=== PATIENT | female | born 1960 | race Caucasian/White ===

== ENCOUNTER 2016-08-06 20:45 | Inpatient (IN) | payer MEDICAID ==
[~2016-08-06] VITALS: Ht 165.1 cm; Wt 84.3 kg
[~2016-08-06 20:45] MED LIST: ATIVAN-DPS0.5 MG PO; CARAFATE DPS1 GM PO; IMITREX25 MG PO; KLONOPIN DPS0.5 MG PO; LAMICTAL DPS100 MG PO; LASIX DPS20 MG PO; LEXAPRO DPS20 MG PO; MICRO-K DPS10 MEQ PO; MIRALAX PACKET17 GM PO; OXY IR DPS5 MG PO; PEPCID40 MG PO; PROTONIX40 MG PO; REVIA50 MG PO; RISPERDAL3 MG PO; SEROQUEL XR300 MG PO; WELLBUTRIN SR150 M1 PO
--- NOTE | 2016-08-07 02:54 | ER ---
ADMIT: 08/06/2016 RM/LOC: 410 [facility] MR#: [id number] [address] [facility] [address] [place], [place] [address] JOSE LUNA [address] [place] [address] Emergency Room Report SEX: F AGE: 56 : 1960 DATE: 08/06/2016 CHIEF COMPLAINT: Abdominal pain. HISTORY OF PRESENT ILLNESS: The patient is a 56-year-old female, newly diagnosed metastatic pancreatic cancer proven by biopsy, hospitalized July 31 through . Since discharge, had persistent poor intake, nausea, and vomiting. Last bowel movement a week ago. Denies any fevers, chills, urinary symptoms, or significant cough. PAST MEDICAL HISTORY: ILLNESSES: Hypertension, pancreatic cancer metastatic, migraines, adjustment disorder, GERD, gastritis proven on recent EGD with negative H. pylori, anemia, chronic pain, bipolar disease, nicotine dependence, and DJD. OPERATIONS: Appendectomy, cholecystectomy, hysterectomy, x5, Parminder- en-Y, and partial gastrectomies for ulcer disease. ALLERGIES: STADOL. MEDICATIONS: Please see nurse's MAR. SOCIAL HISTORY: . Smokes up to 2 packs per day. No illicit drugs or alcohol. FAMILY HISTORY: Negative per chart review. REVIEW OF SYSTEMS: A 12-point review of systems negative for all other systems, illnesses, or operations except as outlined above. PHYSICAL EXAMINATION: VITAL SIGNS: Temp 96.5, pulse 96, respirations 16, BP 148/91, SaO2 of 85% on room air. GENERAL: Anxious, nontoxic, nondiaphoretic without jaundice or icterus. HEENT: Normocephalic. No evidence of epistaxis, rhinorrhea, or otorrhea. NECK: Supple without lymphadenopathy or thyromegaly. CHEST: Clear. Breath sounds equal. HEART: Regular rate and rhythm without murmur, gallop, or edema. ABDOMEN: Distended. Diffusely tender. Bowel sounds hyperactive. EXTREMITIES: No evidence of Homans sign, synovitis, or dermatitis. NEURO: EOMI. PERRLA. No evidence of drift, dysarthria, or ataxia. Gait normal. MEDICAL DECISION MAKING: CT abdomen and pelvis showed nonspecific gas pattern without free air or bowel obstruction, metastatic disease and pancreatic mass noted, unchanged from recent CT. Lung windows unremarkable. Hemoglobin 11.6, stable. CRP 7.06. CMP; glucose 122, troponin less than 0.015, lipase 424, ADMIT: 08/06/2016 RM/LOC: 410 [facility] MR#: [id number] [address] [address] JOSE LUNA [address] [facility], [place] [address] Emergency Room Report SEX: F AGE: 56 : 1960 and lactic 1.2. The patient received IV fluid bolus, Zofran, Dilaudid, and Protonix with improvement. Discussed case with Dr. Seaman and Meggan. Dr. Broderick gave orders to nursing staff. DIAGNOSIS: Metastatic pancreatic carcinoma associated with persistent nausea, vomiting, and abdominal pain. RECOMMENDATION: Admit inpatient Med/Surg for Dr. Rosen. ADMISSION/DISCHARGE CONDITION: Stable. Eyad Jack MD/ modl JOB #: [id number] CC: Franco Rosen MD, Attending Physician Franco Rosen MD, Family Physician Franco Rosen MD
--- NOTE | 2016-08-08 14:25 | HP ---
ADMIT: 08/06/2016 RM/LOC: 410 [facility] MR#: [id number] 26[address] [facility] [address] [place], [place] [address] JOSE LUNA [address] [place] [address] History and Physical SEX: F AGE: 56 : 1960 DATE OF SERVICE: CHIEF COMPLAINT: Nausea, vomiting, and abdominal pain. HISTORY OF PRESENT ILLNESS: The patient is a 56-year-old female, who presented to the ER this evening for nausea, vomiting, and abdominal pain. Of note, she was admitted early this week for nausea, vomiting, abdominal pain, and difficulty swallowing throughout this admission. CT abdomen showed a mass on her pancreas. EGD was done, and liver biopsy was done as well. She received a diagnosis of pancreatic cancer. EGD showed some mild esophagitis and gastritis, and a small type 1 hiatal hernia, but no masses or ulcers. Liver pathology showed invasive adenocarcinoma of signet ring cells consistent with pancreatobiliary or upper GI primary cancer. The patient was discharged home, she was not able to keep any food or liquids down. She continued to have nausea and vomiting, so she decided, she came in. She does mention that the abdominal pain has continued, but it radiated to the left back currently. No fever. No shortness of breath. No chest pain. No diarrhea or constipation. No upper respiratory symptoms. No numbness, tingling, or weakness as well. PAST MEDICAL HISTORY: Significant for bipolar, general anxiety disorder, depression, GERD, chronic pain syndrome, obesity, nicotine dependence, pancreatic cancer, migraines, and osteoarthritis. PAST SURGICAL HISTORY: Includes bariatric surgery. SOCIAL HISTORY: She is a smoker. She smokes about 1 pack per day. She has minimal alcohol use. She is a . REVIEW OF SYSTEMS: Ten-point review of systems obtained and per HPI and was otherwise negative. PHYSICAL EXAMINATION: VITAL SIGNS: Temperature is 97.1, pulse of 81, respirations 16, blood pressure 149/89, and 96% on room air. GENERAL: She does appear in some acute pain, but otherwise stable. She is pleasant, alert, and oriented x3. HEENT: Normocephalic and atraumatic. Moist mucous membranes. Extraocular muscles are intact. HEART: Regular rate and rhythm. No murmur. LUNGS: Clear to auscultation bilaterally. Did not appreciate any wheezing or rhonchi. ABDOMEN: Soft. Positive tenderness in the upper left quadrant. Positive bowel sounds. EXTREMITIES: No signs of edema. NEUROLOGIC: Cranial nerves II through XII are grossly intact. LABORATORY DATA: Blood work; white cell count was 8.7, hemoglobin was 11.6, and platelets were 310. Alkaline phosphatase is elevated at 244, AST was 31, ALT was 28. Sodium is 142, potassium 3.7, chloride 107, CO2 is 25, BUN of 5, ADMIT: 08/06/2016 RM/LOC: 410 [facility] MR#: [id number] [address] [place] [id number] JOSE LUNA [address] [place] [address] History and Physical SEX: F AGE: 56 : 1960 creatinine is 0.8, blood glucose is 122, and calcium is 9.3. Lipase is elevated at 424. Troponin was normal. CRP was 7.06. Lactic acid is 1.2. UA was normal. ASSESSMENT AND PLAN: 1. Pancreatic cancer. 2. Nausea and vomiting. 3. Bipolar. 4. Gastroesophageal reflux disease. 5. Nicotine dependence. 6. Anxiety and depression. We will continue the patient's home medications. We will also get the patient started on IV fluids for rehydration. We will also control her nausea and vomiting. We will consult Heme-Onc in the morning for further management of the patient's cancer. Beatrice Broderick MD Resident / Ernesto Seaman MD / marie JOB #: [id number] CC: Franco Rosen, Attending Physician Franco Rosen, Family Physician
[2016-08-11] MEDS ORDERED: IMITREX25 MG PO (17:33)
[2016-08-11] MEDS ORDERED: LASIX DPS20 MG PO (17:33)
[2016-08-11] MEDS ORDERED: MICRO-K DPS10 MEQ PO (17:34)
[2016-08-11] MEDS ORDERED: PEPCID40 MG PO (17:34)
[2016-08-11] MEDS ORDERED: WELLBUTRIN XL300 MG PO (17:34)
[2016-08-11] MEDS ORDERED: LAMICTAL DPS100 MG PO (17:35)
[2016-08-11] MEDS ORDERED: RISPERDAL3 MG PO (17:35)
[2016-08-11] MEDS ORDERED: LEXAPRO DPS20 MG PO (17:35)
[2016-08-11] MEDS ORDERED: SEROQUEL XR300 MG PO (17:35)
[2016-08-11] MEDS ORDERED: CARAFATE DPS1 GM PO (17:36)
[2016-08-11] MEDS ORDERED: KLONOPIN DPS0.5 MG PO (17:36)
[2016-08-11] MEDS ORDERED: PROTONIX40 MG PO (17:36)
[2016-08-11] MEDS ORDERED: MIRALAX PACKET17 GM PO (17:36)
[2016-08-11] MEDS ORDERED: OXY IR DPS5 MG PO (17:37)
[2016-08-11] MEDS ORDERED: ATIVAN-DPS0.5 MG PO (17:38)
[2016-08-11] MEDS ORDERED: MYLICON DPS80 MG PO (17:39)
[2016-08-11] MEDS ORDERED: REGLAN-DPS10 MG PO (17:40)
[2016-08-11] MEDS ORDERED: NORVASC5 MG PO (17:40)
[2016-08-11] MEDS ORDERED: [UNRECOGNIZED DRUG - OTHER] PO (17:41)
[2016-08-11] MEDS ORDERED: KEFLEX-DPS500 MG PO (17:41)
--- NOTE | 2016-08-12 14:01 | CO ---
ADMIT: 08/06/2016 RM/LOC: 410 [facility] MR#: [id number] 26[address] [facility] [address] [place], [place] [address] COURTNEY LUNA [address] [facility] [place] [address] Consultation SEX: F AGE: 56 : 1960 DATE OF CONSULTATION: 08/09/2016 ATTENDING PHYSICIAN: Franco Rosen CONSULTING PHYSICIAN: Deb Johnson APRN TIME IN: 1410 hours. TIME OUT: 1500 hours. REASON FOR CONSULTATION: Supportive Care consultation was requested by Dr. Rosen for discussion of goals for care. HISTORY OF PRESENT ILLNESS: Courtney is a delightful 56-year-old female, who states that she has been having ongoing nausea and vomiting for a few months. She was hospitalized here July 31 through August 03 with dysphagia, gastritis, and nausea and vomiting. Evaluation at that time unfortunately found a pancreatic mass and she was also found to have liver lesions. Pathology did reveal adenocarcinoma and she is currently preparing to start chemotherapy for metastatic pancreatic cancer. She unfortunately was readmitted on the due to the inability to keep any food down. She was also having significant abdominal pain. Oncology did see her here as an inpatient. Today, she received her port for future chemotherapy. Additionally, there was some concern that her pain was due to celiac plexus involvement and she was going to receive a block today, however, then declined it once her oral pain medications began providing adequate relief of her pain. She will likely discharge soon to home. Due to her complexities, Supportive Care consultation was requested to discuss goals for care. In terms of advanced directives, the patient is a full code. She states that she has completed healthcare [id number] paperwork as well as a living will and is in the process of getting this notarized after she gets out of the hospital. She has designated her daughter, Roula Luna, whose phone #[phone] as her healthcare [id number]. It is of note that the Roula is a nurse here at our facility in the emergency room. The patient states that she will also complete her living will. Symptomatically, the patient reports that overall she is fairly comfortable. Her main issue currently is a little bit of nausea and vomiting and difficulty with swallowing food as she states that it feels like it gets stuck in her esophagus. She is doing better with soft foods and liquids. PAST MEDICAL HISTORY: 1. Metastatic pancreatic cancer. 2. Bipolar disorder. 3. Generalized anxiety disorder. 4. Depression. 5. GERD. 6. Chronic pain syndrome. ADMIT: 08/06/2016 RM/LOC: 410 [facility] MR#: [id number] [address] [place] [phone] COURTNEY LUNA [address] [place] [address] Consultation SEX: F AGE: 56 : 1960 7. Obesity. 8. Nicotine dependence. 9. Migraines. 10.Osteoarthritis. PAST SURGICAL HISTORY: Bariatric surgery. ALLERGIES: THE PATIENT HAS NO KNOWN MEDICATION ALLERGIES. CURRENT MEDICATIONS: Please see the patient's MAR for specific routes and dosages. Her current medications are as follows: 1. Phenergan. 2. Mylicon. 3. Reglan. 4. MiraLax. 5. Norvasc. 6. Seroquel. 7. Risperdal. 8. Pepcid. 9. Protonix. 10.Dulcolax. 11.Benadryl. 12.Narcan. 13.Dilaudid. 14.Wellbutrin. 15.Klonopin. 16.Lexapro. 17.Lamictal. 18.Potassium chloride. 19.Lasix. 20.Ativan. 21.Oxycodone IR. 22.Imitrex. 23.Ativan. 24.Zofran. 25.Habitrol. 26.Maalox. 27.Tylenol. 28.Colace. 29.Carafate. SOCIAL HISTORY: The patient is single. She is . She is a smoker. She minimally uses alcohol. She is Sikhism. FAMILY HISTORY: Reviewed and noncontributory. FUNCTIONAL REVIEW: Prior to her stay, she was at home, independent. She had recently moved into independent living [facility] out at [facility]. She ADMIT: 08/06/2016 RM/LOC: 410 [facility] MR#: [id number] [address] [address] COURTNEY LUNA [facility] [place] [address] Consultation SEX: F AGE: 56 : 1960 could perform ADLs independently. Her palliative performance scale prior to admission was around 70% to 80%. Currently, she can ambulate. She is needing occasional assistance. Her intake is reduced. Her current palliative performance scale is 60%. I did review weights from earlier in the month and she does not appear to have lost weight. REVIEW OF SYSTEMS: A 10-point review of systems was completed and other than those pertinent positives and negatives mentioned in the HPI, it is negative. PHYSICAL EXAMINATION: GENERAL: The patient is examined in the chair. She is in no acute distress. VITAL SIGNS: Temperature 98.1, pulse 77, respirations 18, blood pressure 142/83, oxygen 93% on room air. HEENT: Head is normocephalic. Pupils are equal, round, and reactive at 3 mm. Oral mucosa pink and moist with fair dentition. NECK: Supple. RESPIRATORY: Respirations are equal and nonlabored at rest. LUNGS: Diminished in the bases bilaterally. CARDIOVASCULAR: Rate and rhythm regular without murmurs, rubs, or gallops. Has 1+ bilateral lower extremity edema noted. GASTROINTESTINAL: Soft, nontender. Bowel sounds are positive. She states that she had a bowel movement yesterday. MUSCULOSKELETAL: Generalized weakness. No obvious joint deformities. INTEGUMENTARY: Skin turgor is fair. No rashes or wounds noted. NEUROLOGIC: Alert and oriented x3. She will follow commands. PSYCHIATRIC: Calm and cooperative. No agitation or delirium noted. DIAGNOSTIC DATA: Sodium 144, potassium 3.5, BUN 5, creatinine 0.8, total protein 7.1, albumin 3.0. WBCs 4.9, hemoglobin 9.9, hematocrit 33.0, platelets are 275. IMPRESSION: 1. Physical debility. 2. Fatigue. 3. Dysphagia. 4. Nausea and vomiting. 5. Moderate protein-calorie malnutrition. 6. Abdominal pain. 7. Bipolar disorder. 8. Generalized anxiety disorder. 9. Obesity. 10.Palliative care. 11.The patient is a full code. PLAN OF TREATMENT: 1. I was able to meet with the patient at the bedside along with her mother, father, step mother, and sister. We reviewed the patient's overall status and goals for the time ahead. The patient is realistic and tells ADMIT: 08/06/2016 RM/LOC: 410 [facility] MR#: [id number] [address] [place] [id number] COURTNEY LUNA [address] [place] [address] Consultation SEX: F AGE: 56 : 1960 me that she has "six months to a year to live." She is willing to do chemotherapy in the time ahead and is hopeful that this will provide her some time and also increase quality of life. She recognizes that she will have ongoing decline in the time ahead and eventually her goals will change. We did review the hospice philosophy and benefit for future reference. It is of note that the patient's sister is a hospice nurse and is well-versed with the hospice philosophy. Much support is given to the patient. Her cable mechanic is following her for support as well. 2. We did review code status and at this time, she desires a full code status. She is clear that she would not want to be left on the machine in a vegetative state. We will continue discussions regarding code status pending her status in the time ahead. 3. In terms of advanced directives, she has completed the healthcare power- of-district attorney and living will paperwork, and just needs to get this notarized. I did instruct her that if she brings it to the hospital, we could certainly notarize that for her here or I encouraged her to get to a [employer] or other [employer] as soon as possible after discharge to get this completed. 4. The patient and family do have questions about future care giving options as she declines in the time ahead. I will have Social Work talk with them about caregiving help in the home. 5. We will continue to follow along in the care of this patient. We would like to thank Dr. Rosen for the invitation to participate in this patient's care. Total consultation time was 50 minutes from 1410 hours to 1500 hours with 30 minutes from 1415 hours to 1445 hours spent [id number] with the patient and family discussing goals for care and providing counseling and support. We will continue to follow along in the care of this shabana patient. Deb Johnson APRN/ marie JOB #: [id number] CC: Franco Rosen, Attending Physician Franco Rosen, Family Physician
--- NOTE | 2016-08-22 22:18 | DS ---
ADMIT: 08/06/2016 RM/LOC: 410 [facility] MR#: [id number] 2620 [facility] [address] [place], [place] [address] JOSE LUNA [address] [place] [address] General Discharge Summary SEX: F AGE: 56 : 1960 ADMISSION DATE: 08/06/2016 DISCHARGE DATE: 08/10/2016 CONSULTS: Heme-Onc and Supportive Care. PROCEDURE DURING THIS HOSPITALIZATION: Port placement. FINAL DIAGNOSES: 1. Metastatic pancreatic cancer. 2. Nausea and vomiting secondary to pancreatic cancer. 3. Abdominal pain, suspected to be secondary to a celiac plexus involvement of the cancer. Other diagnoses include: 1. Bipolar disorder. 2. Gastroesophageal reflux disease. 3. Anxiety. 4. Depression. 5. Nicotine dependence. 6. Obesity. COURSE OF HOSPITALIZATION: The patient was admitted to the hospital for abdominal pain, nausea, and vomiting. The patient had just been admitted about a week prior where she was diagnosed with a pancreatic tumor with mets to the liver. The patient continued to have this nausea and vomiting, could not keep anything down and felt weak. The patient was admitted. We treated her nausea and vomiting supportively with IV fluids and antiemetics. The patient also was given oral pain medications. There was, maybe, some suspicion that the cancer was involved to the celiac plexus. She was offered to have a celiac plexus block, but she felt like the oral pain medications were working at this time, so she did not want to pursue that. The patient did have a port placed by General Surgery. The patient was seen by the Heme-Onc team at the time of admission as well and it was decided that the patient would start chemotherapy as an outpatient on 08/11/2016. Supportive Care was also involved to help with discussion of overall cares, hospice, to educate the family on hospice if at later date and they chose to go that route. The patient realizes that her pancreatic cancer has a poor prognosis, but she was willing to do chemotherapy at this time to hopefully help with her quality of life. DISCHARGE INSTRUCTIONS: The patient had a followup appointment with Dr. Rosen on 08/19/2016. Also, had an appointment to see the Oncology on 08/12/2016 to start the chemotherapy. MEDICATIONS: Medications that needed to be stopped after discharge: Naltrexone. Medications that she was sent out on include: 1. Furosemide 20 mg daily. 2. Imitrex 25 mg as needed. 3. Wellbutrin 150 mg daily. ADMIT: 08/06/2016 RM/LOC: 410 [facility] MR#: [id number] [address] [address] JOSE LUNA [facility] [place] [address] General Discharge Summary SEX: F AGE: 56 : 1960 4. Pepcid 40 mg at bedtime. 5. Potassium chloride at 10 mEq daily. 6. Lamictal 200 mg daily. 7. Risperdal 6 mg at night. 8. Seroquel 600 mg at bedtime. 9. Lexapro 20 mg daily. 10.Klonopin 0.5 mg b.i.d. 11.Carafate b.i.d. 12.Protonix 40 mg at bedtime. 13.MiraLax b.i.d. 14.Oxycodone q.8 hours. 15.Ativan 0.5 mg q.6 hours as needed. 16.Mylicon drop as needed every 6 hours. 17.Norvasc 5 mg daily. 18.Reglan 10 mg daily. CODE STATUS DURING THIS HOSPITALIZATION: Full. Beatrice Broderick MD Resident / Ernesto Seaman MD / modl JOB #: [id number] CC: Franco Rosen MD, Attending Physician Franco Rosen MD, Family Physician
--- NOTE | 2016-08-27 00:06 | CO ---
ADMIT: 08/06/2016 RM/LOC: [facility] MR#: [id number] [address] [facility] [address] [place], [place] [address] JOSE LUNA [address] [place] [address] Consultation SEX: F AGE: 56 : 1960 DATE OF CONSULTATION: 08/07/2016 ATTENDING PHYSICIAN: Franco Rosen CONSULTING PHYSICIAN: Chris Echeverria MD HISTORY OF PRESENT ILLNESS: This is a pleasant, 56-year-old, lady, who has a history of schizophrenia, bipolar disorder, prior alcohol history, has been on several pain medications, prior history of pain medication related dependency, comes down with abdominal pain, nausea, and vomiting. CAT scan shows a pancreatic mass along with metastatic liver lesion. She has undergone a biopsy of the liver lesion revealing a pancreatic cancer, and the EGD has shown some esophagitis and gastritis. The patient was discharged and readmitted over the weekend because of the recurring abdominal pain, inability to eat, and keep the fluids down, and complaining of epigastric pain, and difficulty moving her bowels too. She is on Dilaudid pump, and the pathology shows adenocarcinoma of the pancreas. PAST MEDICAL HISTORY SURGERY: Positive for bipolar general anxiety disorder, depression, gastroesophageal reflux, chronic pain syndrome, obesity, nicotine dependence, pancreatic cancer, migraine, and osteoarthritis. PAST SURGICAL HISTORY: Includes a bariatric surgery. SOCIAL HISTORY: She does not work. She is a smoker and has done alcohol in the past. She is . She has children and a very supportive family. REVIEW OF SYSTEMS: She seems to be groggy due to the Dilaudid pump. As far as obtained from the patient, there is an epigastric pain controlled by the Dilaudid [employer] pump. There is nausea and vomiting history. There are no black stools. No urinary complaints. No chest pain. No weight loss. Rest of the systems are negative. PHYSICAL EXAMINATION: VITAL SIGNS: Temperature 97, blood pressure 140/90, pulse rate 81, respirations 20. HEAD, EARS, EYES, NOSE, THROAT EXAM: Normocephalic and atraumatic. Extraocular muscles intact. NECK: Supple. No JVD. No lymph nodes palpable. CHEST: Chest sounds clear to auscultation and percussion. HEART: Normal S1 and S2. No S3 or S4. No murmurs. ABDOMEN: Soft, nontender. No organomegaly. Bowel sounds positive. EXTREMITIES: No cyanosis, clubbing, or edema. LABORATORY DATA: WBC count 4.9, hemoglobin 11.6, hematocrit 36, platelets 310. Sodium 144, potassium 3.5, chloride 110, BUN 5, creatinine 0.8, total protein 7.1, albumin 3.0, alk phosphatase 244, AST 31, ALT 28, lipase 424. ADMIT: 08/06/2016 RM/LOC: 410 [facility] MR#: [id number] [address] [place] [phone] JOSE LUNA [address] [place] [address] Consultation SEX: F AGE: 56 : 1960 ASSESSMENT AND PLAN: This is a pleasant, 56-year-old, lady with the metastatic pancreatic cancer. She has incurable disease, but we can evaluate her for clinical trials versus standard care with the FOLFIRINOX chemo. Her abdominal pain makes me wonder if there is celiac plexus involvement with the tumor causing of this. I will ask our Interventional Radiology to evaluate her for a celiac plexus block for pain control. I explained to her that if we could minimize her narcotics, she would be having a better quality life and more cooperation. I will then plan to see her as an outpatient to start her chemotherapy. I went over about the prognosis, expectations, side effects, treatment options. All the questions were answered. This encounter took 60 minutes, 35 minutes was [id number]. Chris Echeverria MD/ marie JOB #: [id number] CC: Franco Rosen, Attending Physician Franco Rosen, Family Physician
--- NOTE | 2016-09-08 11:41 | OR ---
ADMIT: 08/06/2016 RM/LOC: 410 [facility] MR#: [id number] [address] [facility] [address] [place], [place] [address] JOSE LUNA [address] [place] [address] Operative/Delivery Room Report SEX: F AGE: 56 : 1960 SURGERY DATE: 08/09/2016 SURGEON: David Keller MD PRE-PROCEDURE DIAGNOSIS: Metastatic pancreatic cancer. POSTPROCEDURE DIAGNOSIS: Metastatic pancreatic cancer. PROCEDURE: Right subclavian vein PowerPort placement. INDICATION: The patient is a 56-year-old with metastatic pancreatic cancer, who presents for PowerPort placement. DESCRIPTION OF PROCEDURE: The patient was taken to the operating room. IV sedation was given. The chest and neck were prepped and draped in normal sterile fashion. The case was begun by injecting lidocaine infraclavicularly on the left side. We made about a 6-7 attempts to give in the left subclavian vein and there was not any flash of blood at all. We tried medially and laterally, pulled the arm down with no flash of blood return at all. So, we then went to the right side. I injected 1% lidocaine subclavicularly and on the 1st venipuncture attempt, had a nice backflow of venous output. We threaded the vein with a wire under fluoroscopic guidance with the wire in the right ventricle. An Tyveng-N-Jbkc pocket was made with a #15 blade, cautery, and blunt finger dissection. A dilator sheath was placed over our wire. Our catheter was cut to 15 cm and assembled. Our catheter was then threaded through our sheath under fluoroscopic guidance with the tip in the right atrium. The catheter was aspirated and flushed without difficulty, then was flushed with heparinized saline. The port was sutured to the Alverto's fascia using 3-0 Prolene suture. The wound was closed with interrupted 3-0 Vicryl subdermal suture and a running 4-0 Vicryl subcuticular skin stitch. Wound was cleaned, dried, and dressed. The patient tolerated the procedure without difficulty, transferred to the recovery room in good condition. David Keller MD/ marie JOB #: [id number] CC: Franco Rosen, Attending Physician Franco Rosen, Family Physician
[2016-09-13] MEDS ORDERED: RISPERDAL2 MG PO (18:47)
[2016-09-13] MEDS ORDERED: PEPCID40 MG PO (18:47)
[2016-09-13] MEDS ORDERED: RISPERDAL1 MG PO (18:47)
[2016-09-13] MEDS ORDERED: ZOFRAN4 MG PO (18:48)
[2016-09-13] MEDS ORDERED: PROTONIX40 MG PO (18:48)
[2016-09-13] MEDS ORDERED: CORTISPORIN CR7.5 GM (18:49)
[2016-09-13] MEDS ORDERED: MIRALAX PACKET17 GM PO (18:49)
[2016-09-13] MEDS ORDERED: MICRO-K DPS10 MEQ PO (18:50)
[2016-09-13] MEDS ORDERED: COMPAZINE10 MG PO (18:50)
[2016-09-13] MEDS ORDERED: KLONOPIN DPS0.5 MG PO (18:51)
[2016-09-13] MEDS ORDERED: LEXAPRO DPS20 MG PO (18:51)
[2016-09-13] MEDS ORDERED: IMITREX25 MG PO (18:51)
[2016-09-13] MEDS ORDERED: LAMICTAL150 MG PO (18:52)
[2016-09-13] MEDS ORDERED: BUPROPION XL150 MG PO (18:52)
[2016-09-13] MEDS ORDERED: WELLBUTRIN XL300 MG PO (18:52)
[2016-09-13] MEDS ORDERED: ATIVAN-DPS0.5 MG PO (18:52)
[2016-09-13] MEDS ORDERED: LASIX DPS20 MG PO (18:53)
[2016-09-13] MEDS ORDERED: FLEXERIL-DPS10 MG PO (18:53)
[2016-09-13] MEDS ORDERED: NORVASC5 MG PO (18:53)
[2016-09-13] MEDS ORDERED: MS CONTIN DPS15 MG PO (18:53)
[2016-09-13] MEDS ORDERED: SEROQUEL XR300 MG PO (18:54)
[2016-09-13] MEDS ORDERED: THERA1 EACH PO (18:54)
[2016-09-13] MEDS ORDERED: TYLENOL EXTRA500 M1 PO (18:54)
[2016-09-13] MEDS ORDERED: REGLAN-DPS10 MG PO (18:54)
[2016-09-13] MEDS ORDERED: FLAGYL-DPS500 MG PO (18:55)
[2016-09-13] MEDS ORDERED: NICOTINE PATCH1 EAC1 TD (18:55)
== END 2016-08-10 12:47 | disposition home or self-care (01) | DRG 392 ==
LOC: ER 20:45 → 4PCU 22:49
PROVIDERS: ADMIT Family Medicine
PROC: B2141ZZ Fluoroscopy of Right Heart using Low Osmolar Contrast (ICD-10-PCS; principal; 2016-08-09)
PROC: 0JH60WZ Insertion of Totally Implantable Vascular Access Device into Chest Subcutaneous Tissue and Fascia, Open Approach (ICD-10-PCS; principal; 2016-08-09)
PROC: 02H633Z Insertion of Infusion Device into Right Atrium, Percutaneous Approach (ICD-10-PCS; principal; 2016-08-09)
DX: R11.2 Nausea with vomiting, unspecified (principal); C25.9 Malignant neoplasm of pancreas, unspecified; E44.0 Moderate protein-calorie malnutrition; C78.7 Secondary malignant neoplasm of liver and intrahepatic bile duct; R13.10 Dysphagia, unspecified; E83.42 Hypomagnesemia; I10 Essential (primary) hypertension; D64.9 Anemia, unspecified; K20.9 Esophagitis, unspecified; F32.9 Major depressive disorder, single episode, unspecified; G43.909 Migraine, unspecified, not intractable, without status migrainosus; G89.4 Chronic pain syndrome; K21.9 Gastro-esophageal reflux disease without esophagitis; F31.9 Bipolar disorder, unspecified; M19.90 Unspecified osteoarthritis, unspecified site; K29.70 Gastritis, unspecified, without bleeding; K44.9 Diaphragmatic hernia without obstruction or gangrene; F41.1 Generalized anxiety disorder; E66.9 Obesity, unspecified; F17.210 Nicotine dependence, cigarettes, uncomplicated; Z87.11 Personal history of peptic ulcer disease; Z68.31 Body mass index [BMI] 31.0-31.9, adult

== ENCOUNTER 2016-08-11 08:01 | Day surgery (SDC) | payer MEDICAID ==
[2016-08-11] MEDS ORDERED: LASIX DPS20 MG PO (17:33)
[2016-08-11] MEDS ORDERED: IMITREX25 MG PO (17:33)
[2016-08-11] MEDS ORDERED: WELLBUTRIN XL300 MG PO (17:34)
[2016-08-11] MEDS ORDERED: PEPCID40 MG PO (17:34)
[2016-08-11] MEDS ORDERED: MICRO-K DPS10 MEQ PO (17:34)
[2016-08-11] MEDS ORDERED: LEXAPRO DPS20 MG PO (17:35)
[2016-08-11] MEDS ORDERED: SEROQUEL XR300 MG PO (17:35)
[2016-08-11] MEDS ORDERED: LAMICTAL DPS100 MG PO (17:35)
[2016-08-11] MEDS ORDERED: RISPERDAL3 MG PO (17:35)
[2016-08-11] MEDS ORDERED: KLONOPIN DPS0.5 MG PO (17:36)
[2016-08-11] MEDS ORDERED: PROTONIX40 MG PO (17:36)
[2016-08-11] MEDS ORDERED: MIRALAX PACKET17 GM PO (17:36)
[2016-08-11] MEDS ORDERED: CARAFATE DPS1 GM PO (17:36)
[2016-08-11] MEDS ORDERED: OXY IR DPS5 MG PO (17:37)
[2016-08-11] MEDS ORDERED: ATIVAN-DPS0.5 MG PO (17:38)
[2016-08-11] MEDS ORDERED: MYLICON DPS80 MG PO (17:39)
[2016-08-11] MEDS ORDERED: REGLAN-DPS10 MG PO (17:40)
[2016-08-11] MEDS ORDERED: NORVASC5 MG PO (17:40)
[2016-08-11] MEDS ORDERED: [UNRECOGNIZED DRUG - OTHER] PO (17:41)
[2016-08-11] MEDS ORDERED: KEFLEX-DPS500 MG PO (17:41)
--- NOTE | 2016-08-20 18:05 | ER ---
ADMIT: 08/11/2016 RM/LOC: [facility] MR#: [id number] [address] [facility] [address] [place], [place] [address] JOSE LUNA [address] [place] [address] Emergency Room Report SEX: F AGE: 56 : 1960 DATE: 08/11/2016 CHIEF COMPLAINT: Right hand pain and hit head. HISTORY OF PRESENT ILLNESS: The patient is a 56-year-old female who lost her balance, fell forward, caught herself with her right hand striking the concrete and hitting her head on the concrete also. She does not think she had any loss of consciousness and her primary complaint at this time is pain in her right hand. Her recent history is significant for diagnosis of pancreatic cancer within the past week and half for which she had an admission at that time. She had been having significant problems with nausea and vomiting, which led to the workup and diagnosis of pancreatic cancer. She has no complaints of any difficulty breathing, chest pain, abdominal pain at this time. She has no numbness, tingling, or weakness in any extremity. She has no vision changes and does not have any significant headache. PAST MEDICAL HISTORY: Significant for schizophrenia, bipolar anxiety, and pancreatic cancer. PREVIOUS SURGERIES: Appendectomy, cholecystectomy, and hysterectomy. MEDICATIONS: See nurse's note. ALLERGIES: NONE. SOCIAL HISTORY: Does smoke. Denies any drug or alcohol use. PHYSICAL EXAMINATION: See T-sheet. Focused exam of the right hand reveals she has a deformity to the hand with an open fracture on the right hand with some bone protruding to the palmar surface. She has sensation intact distally but does feel like she has some paresthesias on the 3rd digit, but can feel it. She does have cap refill of all the nails on her right hand and has good radial pulse. She has some tenderness in the distal radius also. The right elbow and right shoulder are unaffected. She does have slight swelling and ecchymosis on the right side of her face. She has a slight abrasion on the bridge of her nose also. CT head shows nothing acute other than hematoma. X-rays of the right wrist shows she has a slight radial styloid fracture. X-rays of the hand show an open fracture dislocation of the 2nd metacarpal. She has a fracture of the 4th metacarpal. EMERGENCY DEPARTMENT COURSE: The patient arrived. She obviously had an open fracture of her right hand. We had to give an IV steroid to get her pain control with Dilaudid and Zofran for nausea. She did have repeat doses of Dilaudid for pain in the emergency department. I did contact Dr. Flores who is on from Orthopedics, and he evaluated the patient and due to the nature of the ADMIT: 08/11/2016 RM/LOC: [facility] MR#: [id number] [address] [place] [id number] [address] LUNA [address] [place] [address] Emergency Room Report SEX: F AGE: 56 : 1960 injury, he said that Dr. Gilmore was in town to see if he would be able to take care of the wound. I did contact Dr. Gilmore who did come in and evaluate the patient in the emergency department. Plan at this time is taking the patient to the operating room. DIAGNOSES: 1. Dislocation of 2nd and 3rd right metacarpal. 2. Fracture of 4th right metacarpal. 3. Fracture right radial styloid. 4. Open fracture second right metacarpal. 5. Facial contusion. 6. Abrasion to the nose. Lloyd Fountain MD/ marie JOB #: [id number] CC: Spenser Gilmore MD, Attending Physician Franco Rosen MD, Family Physician
--- NOTE | 2016-08-25 16:03 | HP ---
ADMIT: 08/11/2016 RM/LOC: [facility] MR#: [id number] 2620 [facility] [address] [place], [place] [address] COURTNEY LUNA [address] [place] [address] Pre-OP History and Physical SEX: F AGE: 56 : 1960 DATE OF SERVICE: HISTORY OF PRESENT ILLNESS: I was contacted by Dr. Fountain in the ER department regarding acute injuries Ms. Luna had sustained. She is medically stable with very unhealthy right hand-dominant 56-year-old with multiple medical problems. She misstepped this morning on daughter's step trying to reach the door, fell, and sustained an open comminuted fracture dislocation of her right index MP joint, an open dislocation right long MP joint with lacerations palmarly. In addition, she has some pain in the right wrist and swelling, and x-rays also disclose an impacted 4th metacarpal neck fracture and a minimally to nondisplaced right radial styloid fracture. Upon arriving to the ER, diagnosis being entertained, she was given cefazolin and analgesic. I have discussed with Courtney and her daughters the need to and benefit of going to operating room to wash out the wounds, reduce the bones, and probably pin the radial styloid fracture, probably minimal intervention there. Burying the pins most likely will require a stab wound to remove the pins probably six weeks or more down the road. In addition, she is scheduled to start chemotherapy in a week or two, and I suggested to her that she may want to have this postponed so that the wound can heal first. ALLERGIES: NONE. MEDICATIONS: 1. Lasix 20 mg daily. 2. Imitrex 25 mg p.r.n. migraines. 3. Wellbutrin 300 mg mg daily. 4. Pepcid 40 mg daily. 5. KCl 10 mEq daily. 6. Lamictal 100 mg b.i.d. 7. Risperdal 6 mg at bedtime. 8. Seroquel XR 600 mg at bedtime. 9. Lexapro 20 mg daily. 10.Klonopin 0.5 mg b.i.d. 11.Carafate before meals and at bedtime. 12.Protonix 40 mg at bedtime. 13.MiraLAX 17 g in 8 ounce drink b.i.d. 14.Oxycodone every 8 hours p.r.n. 15.Ativan 0.5 mg every 6 hours p.r.n. 16.Mylicon 80 mg every 6 hours. 17.Norvasc 5 mg daily. 18.Reglan 10 daily. SYSTEM REVIEW: Obesity, bipolar disorder, GERD with history of ulcer disease, and recently diagnosed pancreatic cancer, and hypertension. PAST SURGICAL HISTORY: Hysterectomy, stomach ulcer surgery I think possibly three times. She has had a cholecystectomy. I am not sure if she had any other operations besides that. PHYSICAL EXAMINATION: VITAL SIGNS: Reviewed and they are normal. ADMIT: 08/11/2016 RM[facility]LOC: [facility] MR#: [id number] [address] [address] COURTNEY LUNA [address] [place] [address] Pre-OP History and Physical SEX: F AGE: 56 : 1960 HEENT: Intact extraocular motion. She has a small stoma to her mouth. The upper teeth look okay. The bottom teeth and the rest of the buccal cavity was poorly visualized. NECK: No jugular venous distention. CHEST: Clear to auscultation. HEART: Rapid heart rate. S1 and S2 without murmur. BREASTS: Deferred. ABDOMEN: Obese and nontender. No obvious masses. EXTREMITIES: Vascularity grossly intact to her hands. Feet are warm and well perfused. I could not palpate pedal pulses. I did not try to palpate radial pulses. MUSCULOSKELETAL: Her right hand has a bandage in the palm, iodine coated. Her fingers are in odd posture. They are all well perfused. She has a deep abrasion in the dorsum of the right wrist, which is not actively bleeding. There is no active bleeding coming from her palm through the dressing. There is swelling dorsoradial over the wrist and tenderness there. No crepitation with gentle wrist motion. NEUROLOGIC: Grossly intact cranial nerves and sensory and motor to her upper and lower extremities. Reflex examination was not undertaken. IMPRESSION: Acute open fracture and dislocation of right index and long MPs with closed minimally displaced right radial styloid fracture in a medically stable, but very unhealthy woman. PLAN: To the operating room for washing out wounds, repair of same, and probable pin fixation of the radial styloid. I pointed out there may be further problems down the road either infection, hopefully not, but also with pain in the index and MP, and she is doing well enough to tolerate it, might possibly need and benefit from silastic MP joint replacement down the road. Spenser Gilmore MD/ marie JOB #: [id number] CC: Spenser Gilmore, Attending Physician Franco Rosen, Family Physician
--- NOTE | 2016-08-25 16:08 | OR ---
ADMIT: 08/11/2016 RM/LOC: [facility] MR#: [id number] [address] [address] JOSE LUNA [address] [place] [address] Operative/Delivery Room Report SEX: F AGE: 56 : 1960 SURGERY DATE: 08/11/2016 SURGEON: Spenser Gilmore MD PREOPERATIVE DIAGNOSIS: Acute open right index and long metacarpophalangeal dislocation with fracture dislocation of index and non- to minimally displaced right radial styloid fracture - closed. POSTOPERATIVE DIAGNOSES: 1. Open right long metacarpophalangeal palmar dislocation. 2. Closed right index metacarpophalangeal fracture dislocation. 3. Closed minimally displaced right radial styloid fracture. 4. Impacted right 4th metacarpal neck fracture. OPERATION PERFORMED: 1. Irrigation and debridement of right palmar wound in the long finger MP joint. 2. Open reduction of right long finger MP dislocation. 3. Open reduction and pin fixation of right index finger MP fracture dislocation. 4. In situ pinning of right radial styloid fracture. 5. Intraoperative use of the image intensifier. 6. Application of palmar fiberglass splint. ASSIST: Maddie Price CST ANESTHESIA: General endotracheal by Lorena Fowler CRNA and Corwin Bagley MD, supplemented by 0.25% Marcaine, median ulnar block and superficial radial blocks as well as intracutaneous local at wrist by Dr. Gilmore. FINDINGS: No gross dirt. The index was very long and it was very difficult to reduce and had to be done open, and removal of bone fragments and release of soft tissues, etc., whereas the long finger was easily reduced. DESCRIPTION OF PROCEDURE: The patient had received her intravenous cefazolin, 2 g, and had received her anesthetic. The right upper extremity was sterilely prepped and draped in the usual fashion with a well-padded tourniquet on the upper arm. After Esmarch bandage exsanguination, tourniquet was inflated to 250 mmHg. The palmar wound was retracted and irrigated with saline. The long finger MP was reduced. I could not manipulate the index MP into reduction and reduce this. A 4 cm transverse incision was made over the MP extension crease, blunt dissection under 3.5 loupe magnification was dissected down the extensor mechanism, which was then released longitudinally ulnar sagittal band. Capsulotomy was performed. Large osteochondral fragments in the dorsal MP were removed and discarded. Even with directly visualizing, I was unable to reduce the index MP because of the interposed palmar plate. I released this, to some degree, up the radial aspect. The index finger could not be released enough to reduce the finger, so I supinated the forearm, extended the palmar incision to distal palmar crease and released the A1 adam to the index flexor tendons, retracted them ulnarly, finished releasing the palmar plate ADMIT: 08/11/2016 RM/LOC: [facility] MR#: [id number] [address] [place] [id number] JOSE LUNA [address] [place] [address] Operative/Delivery Room Report SEX: F AGE: 56 : 1960 off the palmar base of the proximal phalanx and ultimately, I was able to manipulate the index proximal phalanx into reduced position but it tended to want to subluxate when it got dorsally because of the osteochondral fragment removed. I repaired the skin wound to the palm with 4-0 nylon, repaired the extensor mechanism of the index with interrupted lnpbdn-xn-hjwce sutures of 3- 0 Ti-Cron and then, the skin was closed with interrupted vertical mattress sutures of 4-0 nylon. With the MP reduced and held in a flexed position at almost 90 degrees retrograde, a 0.45 K-wire was driven across the MP joint. A longitudinal 1.5 cm incision was made just over the radial styloid. Subperiosteal dissection was used to elevate underneath the first extensor compartment. Divergent 0.62 K-wire was inserted across the radial styloid fracture, bent, cut and then images were taken confirming proper reduction and alignment of both the metacarpals as well as the radial fracture. The skin wound overlying the radial styloid was closed with interrupted vertical mattress of 4-0 nylon. A sterile bulky dressing was applied from fingers to mid forearm, and a fiberglass splint was applied with the MPs flexed, the wrist extended. The tourniquet was let down at probably about 65 minutes. There was no blood loss. There were no complications. The osteochondral fragment removed from the dorsum of the index metacarpal, almost 1 cm wide x 5 mm, was discarded (could not have been internally fixed). The patient was extubated, taken to recovery in stable condition. A Saunders that had been inserted at the beginning of the case was also removed before she left the operating room. Spenser Gilmore MD/ marie JOB #: [id number] CC: Spenser Gilmore, Attending Physician Franco Rosen, Family Physician MD Lloyd Mead MD
[2016-09-13] MEDS ORDERED: RISPERDAL2 MG PO (18:47)
[2016-09-13] MEDS ORDERED: RISPERDAL1 MG PO (18:47)
[2016-09-13] MEDS ORDERED: PEPCID40 MG PO (18:47)
[2016-09-13] MEDS ORDERED: ZOFRAN4 MG PO (18:48)
[2016-09-13] MEDS ORDERED: PROTONIX40 MG PO (18:48)
[2016-09-13] MEDS ORDERED: CORTISPORIN CR7.5 GM (18:49)
[2016-09-13] MEDS ORDERED: MIRALAX PACKET17 GM PO (18:49)
[2016-09-13] MEDS ORDERED: MICRO-K DPS10 MEQ PO (18:50)
[2016-09-13] MEDS ORDERED: COMPAZINE10 MG PO (18:50)
[2016-09-13] MEDS ORDERED: KLONOPIN DPS0.5 MG PO (18:51)
[2016-09-13] MEDS ORDERED: LEXAPRO DPS20 MG PO (18:51)
[2016-09-13] MEDS ORDERED: IMITREX25 MG PO (18:51)
[2016-09-13] MEDS ORDERED: BUPROPION XL150 MG PO (18:52)
[2016-09-13] MEDS ORDERED: ATIVAN-DPS0.5 MG PO (18:52)
[2016-09-13] MEDS ORDERED: LAMICTAL150 MG PO (18:52)
[2016-09-13] MEDS ORDERED: WELLBUTRIN XL300 MG PO (18:52)
[2016-09-13] MEDS ORDERED: LASIX DPS20 MG PO (18:53)
[2016-09-13] MEDS ORDERED: NORVASC5 MG PO (18:53)
[2016-09-13] MEDS ORDERED: FLEXERIL-DPS10 MG PO (18:53)
[2016-09-13] MEDS ORDERED: MS CONTIN DPS15 MG PO (18:53)
[2016-09-13] MEDS ORDERED: THERA1 EACH PO (18:54)
[2016-09-13] MEDS ORDERED: TYLENOL EXTRA500 M1 PO (18:54)
[2016-09-13] MEDS ORDERED: SEROQUEL XR300 MG PO (18:54)
[2016-09-13] MEDS ORDERED: REGLAN-DPS10 MG PO (18:54)
[2016-09-13] MEDS ORDERED: FLAGYL-DPS500 MG PO (18:55)
[2016-09-13] MEDS ORDERED: NICOTINE PATCH1 EAC1 TD (18:55)
== END 2016-08-11 16:00 | disposition home or self-care (01) ==
LOC: ER 08:01 → SSS 10:15
DX: S62.300A Unspecified fracture of second metacarpal bone, right hand, initial encounter for closed fracture (principal); S52.511A Displaced fracture of right radial styloid process, initial encounter for closed fracture; S62.334A Displaced fracture of neck of fourth metacarpal bone, right hand, initial encounter for closed fracture; S63.262A Dislocation of metacarpophalangeal joint of right middle finger, initial encounter; F17.200 Nicotine dependence, unspecified, uncomplicated; F41.9 Anxiety disorder, unspecified; I10 Essential (primary) hypertension; E66.9 Obesity, unspecified; F31.9 Bipolar disorder, unspecified; Z90.710 Acquired absence of both cervix and uterus; C25.9 Malignant neoplasm of pancreas, unspecified; Z79.899 Other long term (current) drug therapy; Z98.890 Other specified postprocedural states; W19.XXXA Unspecified fall, initial encounter

== ENCOUNTER 2016-10-29 10:16 | Inpatient (IN) | payer MEDICAID ==
[~2016-10-29] VITALS: Ht 165.1 cm; Wt 67.4 kg
[~2016-10-29 10:16] MED LIST changes: +BUPROPION XL150 MG PO; +COMPAZINE10 MG PO; +CORTISPORIN CR7.5 GM; +FLAGYL-DPS500 MG PO; +FLEXERIL-DPS10 MG PO; +KEFLEX-DPS500 MG PO; +LAMICTAL150 MG PO; +MS CONTIN DPS15 MG PO; +MYLICON DPS80 MG PO; +NICOTINE PATCH1 EAC1 TD; +NORVASC5 MG PO; +REGLAN-DPS10 MG PO; +RISPERDAL1 MG PO; +RISPERDAL2 MG PO; +THERA1 EACH PO; +TYLENOL EXTRA500 M1 PO; +WELLBUTRIN XL300 MG PO; +ZOFRAN4 MG PO; +[UNRECOGNIZED DRUG - OTHER] PO
--- NOTE | 2016-11-01 15:13 | CO ---
ADMIT: 10/29/2016 RM/LOC: [facility] MR#: [id number] 2620 [facility] [address] [place], [place] [address] COURTNEY LUNA [address] [place] [address] Consultation SEX: F AGE: 56 : 1960 DATE OF CONSULTATION: 11/01/2016 ATTENDING PHYSICIAN: Franco Rosen CONSULTING PHYSICIAN: Deb Johnson APRN TIME IN: 10:45. TIME OUT: 11:20. REASON FOR CONSULTATION: Supportive care consultation was requested by Dr. Rosen for discussion of goals for care. HISTORY OF PRESENT ILLNESS: Courtney is a pleasant, 56-year-old, female with the unfortunate history of recently diagnosed stage IV pancreatic cancer with liver metastasis. She is receiving IV chemotherapy and was actually due for her next dose today. She has had ongoing issues with nausea, vomiting, and diarrhea, and also progressive weakness which prompted her presentation to the emergency room on October 29 for evaluation. She did screen positive for severe sepsis and was placed in the ICU. She is C. diff positive which she has also had in the past. Due to dehydration, she is also suffering from acute kidney injury, and Renal is following her case. CT of the abdomen and pelvis was done on 10/31, that showed likely gastroenteritis as well as the pancreatic malignancy with lymph nodes and hepatic metastasis that was similar to the prior exam. She has had increasing oxygen needs over the course of the past day and is currently on 9 L per simple mask. She is also having ongoing pain issues and is currently fairly sleepy after receiving pain medications. It is of note that I did evaluate the patient for supportive care consultation back in July 2016. Please see my dictation from August 09, 2016, for full details of that report. In terms of advance directives, the patient is a do not resuscitate/do not intubate status. The patient's daughter, Roula Luna, is her power-of- lockstitch coat joiner for healthcare; and her phone number is [phone]. Symptomatically, the patient is lethargic after pain medications as noted. She is very weak and debilitated. She has lost weight. Please see my past dictation for the patient's past medical, surgical, social, and family history. ALLERGIES: THE PATIENT HAS NO KNOWN MEDICATION ALLERGIES. CURRENT MEDICATIONS: Please see the patient's MAR for specific routes and dosages. Her current medications are as follows: 1. Dilaudid. 2. DuoNeb. 3. Ativan. 4. D5W with sodium bicarbonate and potassium chloride. ADMIT: 10/29/2016 RM/LOC: 313 [facility] MR#: [id number] [address] [address] COURTNEY LUNA [address] [place] [address] Consultation SEX: F AGE: 56 : 1960 5. Seroquel. 6. Nitro-Bid. 7. Levophed. 8. Percocet. 9. Lexapro. 10.Risperidone. 11.Creon 12. 12.Reglan. 13.Mylicon. 14.Megace. 15.Lamictal. 16.Klonopin. 17.Wellbutrin. 18.Temovate. 19.Ambien. 20.Vancomycin. 21.Habitrol. 22.Heparin flush. 23.Flu vaccine. 24.Glutose. 25.Glucagon. 26.D5 normal saline. 27.D50. 28.Colace. 29.Maalox. 30.Tylenol. 31.Nitrostat. 32.Zofran. 33.Heparin. FUNCTIONAL REVIEW: Prior to her hospital stay, she was at home but needed a caregiver most of the time. Intake was reduced. Her palliative performance scale prior to admission was around 50%. Currently, she is in bed. She is total care. Intake is minimal to reduced. She is drowsy. Her current palliative performance scale is at 20% to 30%. In review of her record, she has had significant weight loss over the course of the past couple of months. In July 2016, she was weighing around 187 pounds. Currently, she is down to 147 pounds. REVIEW OF SYSTEMS: A 10-point review of systems was attempted. However, due to the patient's mentation, this was unable to be obtained. PHYSICAL EXAMINATION: GENERAL: The patient is examined in the bed. She is in no acute distress. VITAL SIGNS: Temperature 98.9, pulse 91, respirations 24, blood pressure 94/76, and oxygen 91% on 9 L per simple mask. HEENT: Head is normocephalic. Pupils are not examined. Oral mucosa is pink and moist with fair dentition. ADMIT: 10/29/2016 RM/LOC: 313 [facility] MR#: [id number] [address] [place] [id number] COURTNEY LUNA [address] [place] [address] Consultation SEX: F AGE: 56 : 1960 NECK: Supple. RESPIRATORY: Respirations are equal and nonlabored. LUNGS: Diminished throughout. CARDIOVASCULAR: Rate and rhythm regular without murmurs, rubs, or gallops; 1+ bilateral lower extremity edema noted. GASTROINTESTINAL: Slightly distended. Bowel sounds are hypoactive. MUSCULOSKELETAL: Generalized weakness. INTEGUMENTARY: Skin turgor is fair. NEUROLOGIC: She is lethargic. She will not open her eyes for me. PSYCHIATRIC: Calm. No agitation noted. DIAGNOSTIC DATA: Sodium 146, potassium 3.3. BUN 15, creatinine 0.8. Total protein 4.3, albumin 1.4. WBCs 13.9, hemoglobin 8.6, hematocrit 26.9, and platelets are 151. IMPRESSION: 1. Physical debility. 2. Lethargy. 3. Malaise. 4. Palliative care. 5. Severe protein-calorie malnutrition. 6. Abnormal weight loss. 7. Sepsis. 8. Clostridium difficile colitis. 9. Hypoxia. 10.Acute kidney injury. 11.Stage IV pancreatic cancer. 12.The patient is a do not resuscitate/do not intubate. PLAN: As mentioned, the patient is lethargic at this time after receiving medications and is unable to participate in medical decision-making. I am able to meet with the patient's two daughters including her [id number], Roula, who is at the bedside. We reviewed the patient's overall status and goals for the time ahead. They do confirm that the patient has had ongoing decline, and they confirmed her do not resuscitate/do not intubate status. At this point, the goal is to continue current care to see if she can get through her acute issues with the goal of getting back home. They are realistic that should she decline in the time ahead that they would consider transitioning to ADMIT: 10/29/2016 RM/LOC: 313 [facility] MR#: [id number] [address] [place] [id number] COURTNEY LUNA [address] [place] [address] Consultation SEX: F AGE: 56 : 1960 comfort care. They are also questioning perhaps the transition to hospice care even if the patient does survive this hospital stay. Obviously, there are goal discussions to be had in the time ahead pending her status. At this time, we will continue current care, and much support was given to the patient's family. We will continue to follow along and discuss goals for care pending the patient's status. We would like to thank Dr. Rosen for the invitation to participate in this patient's care. Total consultation time was 35 minutes from 10:45 to 11:20 with 23 minutes from 10:47 to 11:10 spent [id number] with the patient and family discussing goals for care and providing counseling and support. Deb Johnson APRN/ marie JOB #: [id number] CC: Franco Rosen, Attending Physician Franco Rosen, Family Physician
--- NOTE | 2016-11-04 11:30 | CO ---
ADMIT: 10/29/2016 RM/LOC: 313 [facility] MR#: [id number] 2620 [facility] [address] [place] [id number] COURTNEY LUNA [address] [place] [place] [address] Consultation SEX: F AGE: 56 : 1960 DATE OF CONSULTATION: 10/31/2016 ATTENDING PHYSICIAN: Franco Rosen CONSULTING PHYSICIAN: Patricia Connors MD REASON FOR CONSULTATION: Acute kidney injury and metabolic acidosis. HISTORY OF PRESENT ILLNESS: The patient is a 56-year-old female, who has a history of metastatic pancreatic adenocarcinoma. She has been receiving chemotherapy. She presented to the hospital with nausea, vomiting, and diarrhea three days prior to admission and was found to have C. diff colitis. She is being treated for that with oral vancomycin. She had an acute kidney injury on presentation with a creatinine of 2.7. This has improved to 1.1 today. Her acute kidney injury was prerenal in etiology. However, this afternoon, she has been lethargic and had a change in her mental status. She has been confused as well. She is unable to give me a history and the history is obtained from her sister at bedside as well as stepmother and her daughter Roula. They endorse the history above. They report that the chemotherapy that she was getting was palliative chemotherapy. They have discussed code status before with Courtney. REVIEW OF SYSTEMS: Unobtainable secondary to the patient's condition. PAST MEDICAL HISTORY: 1. Stage IV pancreatic adenocarcinoma with metastasis to the liver. 2. COPD. 3. Nicotine dependence. 4. Alcohol and opioid abuse. 5. Peptic ulcer disease. 6. Migraine headaches. 7. Depression. 8. Bipolar disorder. 9. Chronic hypokalemia. 10.Malnutrition. 11.Hysterectomy. 12.C-sections. 13.Cholecystectomy. MEDICATIONS: Reviewed in the chart. ALLERGIES: NO KNOWN DRUG ALLERGIES. SOCIAL HISTORY: She lives at home. She has two daughters in the area. FAMILY HISTORY: No family history of chronic kidney disease or renal replacement therapy. PHYSICAL EXAMINATION: VITAL SIGNS: Temperature 96.1 Fahrenheit, pulse 81, ADMIT: 10/29/2016 RM/LOC: 313 [facility] MR#: [id number] 2620 [facility] [address] [place], [place] [phone] COURTNEY LUNA [address] [place] [address] Consultation SEX: F AGE: 56 : 1960 blood pressure 82/62. GENERAL: She appears ill and is in bed. She is not tachypneic. HEENT: Pale conjunctivae. Dry mucosa. CHEST: Decreased breath sounds bilaterally. CVS: Regular rhythm. S1 and S2 heard. No rubs, murmurs, or gallops. ABDOMEN: Soft, distended. EXTREMITIES: Has 1 to 2+ lower extremity edema. SKIN: No rash or nodules. NEUROLOGIC: Cranial nerves II through XII appear grossly normal. LABORATORY DATA: Reviewed. BMP with sodium 144, potassium 4.1, CO2 of 10, creatinine 1.1. It was 2.7 yesterday. Hemoglobin 9.1. ABG with pH 7.22 with a pCO2 of 21.7. Her lactate was 1.2. Urinalysis; 1+ protein, negative blood, negative leukocyte esterase. ASSESSMENT AND PLAN: 1. Acute kidney injury - this is prerenal in etiology and has improved with supportive care. Monitor kidney function and avoid nephrotoxins such as NSAIDs, IV contrast, or Fleets enemas. 2. Metabolic acidosis - her anion gap is not terribly elevated. She has a mild elevation in her anion gap if you take her hypoalbuminemia into account. This is a pure metabolic acidosis. Her metabolic acidosis could be secondary to her malignancy with some contribution from normal saline that she was getting and her acute kidney injury. I agree with isotonic sodium bicarbonate for the time being and see if this will improve any. I discussed with her family about goals of care. She is definitely a DNR. I discussed that her respiratory status is not the greatest and they will discuss if we would pursue any endotracheal intubation or ventilation if her breathing status was to get worse. I also discussed comfort measures and they plan to think about this as well. Thank you for this consultation. Please do not hesitate to contact with any questions. Patricia Connors MD/ marie JOB #: [id number] CC: Franco Rosen, Attending Physician Franco Rosen, Family Physician
--- NOTE | 2016-11-10 07:20 | HP ---
ADMIT: 10/29/2016 RM/LOC: 426 [facility] MR#: [id number] 2620 [facility] [address] [place] [phone] JOSE LUNA [address] [place] [address] History and Physical SEX: F AGE: 56 : 1960 DATE OF SERVICE: CHIEF COMPLAINT: Nausea, vomiting, and diarrhea. HISTORY OF PRESENT ILLNESS: The patient presents to the emergency room with a 3-day history of nausea, vomiting, and diarrhea. She reports that symptoms began suddenly three days ago and she was hopeful that they would reside spontaneously, so she did not present to the clinic. Today, as her sister came to stay with her for the weekend to help her with her cares and she insisted that she be evaluated due to her generalized weakness. The patient denies that she has had any fever over the last few days. She does endorse mild left lower quadrant abdominal pain and moderate to severe bloating. She is having many loose stools a day. She describes them as malodorous with a large volume of mucus. She has also had frequent episodes of vomiting. She denies any hematemesis, melena, or hematochezia. She does have history of peptic ulcer disease, requiring multiple interventions. Of note, the patient was diagnosed with stage IV pancreatic adenocarcinoma in July of this year and has been receiving IV chemotherapy. Her last infusion was October 17, was planned for the next one to be on November 01. She endorses mild productive cough, but states that her baseline is from her COPD. She reports that she has not been able to keep down any liquids or other oral intake today. She did have history of Clostridium difficile 2 months prior and reports that these symptoms remind her of that episode. PAST MEDICAL HISTORY: Stage IV adenocarcinoma, pancreatic adenocarcinoma with metastases to the liver, bipolar disorder, chronic obstructive pulmonary disease, nicotine dependence, history of alcohol and opioid abuse, history of peptic ulcer disease requiring multiple interventions, migraine headache disorder, depression, chronic cervicalgia pain, chronic hypokalemia, moderate protein-calorie malnutrition. PAST SURGICAL HISTORY: Hysterectomy, sections, cholecystectomy, gastric ulcers requiring multiple interventions. MEDICATIONS: Note the patient's home med list appears to be incomplete and differs from the last medication list at discharge and from what we have at the clinic, but the most recent outpatient list includes: 1. Lorazepam 0.5 mg p.o. 2. Pantoprazole 40 mg p.o. 3. Sucralfate 1 g p.o. 4. Furosemide 20 mg p.o. 5. Cyclobenzaprine 10 mg p.o. 6. Lamotrigine 150 mg p.o. 7. Morphine sulfate ER 15 mg p.o. 8. Ambien 5 mg p.o. 9. Bupropion 300 mg p.o. 10.Clonazepam 0.5 mg p.o. 11. 10 mg p.o. 12.Amlodipine 5 mg p.o. ADMIT: 10/29/2016 RM/LOC: 426 [facility] MR#: [id number] [address] [id number] JOSE LUNA [address] [place] [address] History and Physical SEX: F AGE: 56 : 1960 13.Metoclopramide 10 mg p.o. 14.Zofran 4 mg p.o. 15.Sumatriptan 25 mg p.o. 16.Lexapro 20 mg p.o. 17.Potassium chloride 10 mEq p.o. 18.Risperidone 4 mg p.o. 19.Seroquel XR 300 mg p.o. 20.Multivitamin. ALLERGIES: THE PATIENT HAS STADOL IS HER ONLY MEDICAL ALLERGY. FAMILY HISTORY: No family history of pancreatic cancer. SOCIAL HISTORY: The patient is single. She is without her sister who is a registered nurse to come and stay with her on the weekends to help with her care. She smokes 1/2 pack per day of tobacco and has minimal alcohol use. She has history of documented of alcohol and opioid abuse. REVIEW OF SYSTEMS: A 10-point review of systems is completely negative except as noted in the HPI. PHYSICAL EXAMINATION: VITAL SIGNS: 95/75, 107, 16, 94% on room air, 96.2. GENERAL: Patient is awake, alert, and oriented, though she does appear drowsy. HEENT: Head is normocephalic and atraumatic. Hair is extremely short. Pupils are equal, round, and reactive to light. Extraocular muscles intact. Mucous membranes are dry. Voice is soft. NECK: Supple. Trachea is midline. Thyroid is not palpable. HEART: Tachycardic. Regular rhythm without murmur. LUNGS: Clear to auscultation bilaterally, though diminished in bilateral bases, likely secondary to exertion. ABDOMEN: Distended, soft, tender to palpation in left lower quadrant, and mild tenderness to palpation in the left upper quadrant. There is no rebound or guarding. Bowel sounds are hyperactive throughout. EXTREMITIES: Without cyanosis, clubbing, or edema. SKIN: Without rash on exposed areas. PSYCH: Normal mood and affect. NEURO: Grossly intact with purposeful movement in all four extremities. Cranial nerves II through XII intact. LABORATORY DATA: WBC 9.3 with 24% bandemia, HGB 11.3, PLT 215. Creatinine 2.7 from baseline of 1.9, sodium 133, potassium 2.7, CO2 16, magnesium 1.7, phos 5.9, calcium 8.2, albumin 2.4, alkaline phosphatase 599. INR 1.15. Lactic acid 2.3. Procalcitonin 2.66. ASSESSMENT AND PLAN: 1. Severe sepsis, secondary to gastrointestinal source. 2. Stage IV pancreatic adenocarcinoma with known liver metastases. ADMIT: 10/29/2016 RM/LOC: 426 [facility] MR#: [id number] 2620 [facility] [address] [place] [id number] JOSE LUNA [address] [place], [place] [address] History and Physical SEX: F AGE: 56 : 1960 3. Acute kidney injury, secondary to hypovolemia, prerenal. 4. Moderate protein-calorie malnutrition. 5. Hypokalemia. 6. Hypomagnesemia. 7. Bipolar disorder. 8. Chronic obstructive pulmonary disease. PLAN: To admit the patient. Continue aggressive IV fluid hydration. Her acute kidney injury appears to be prerenal at this time with 43 hyaline casts in her UA. We will start empiric antibiotics, meropenem, and Flagyl targeting gastrointestinal source and suspected recurrent Clostridium difficile colitis. At this time, the patient's abdominal exam does not have any concern for toxic megacolon, but her symptoms persist or progress. We will not hesitate to get noncontrast abdominal CT. We will continue the patient's home analgesics and add morphine IV for breakthrough pain. We will work to get an accurate home medication list. Discussed code status with the patient. She is clear that she would still maintain her status as a full code, but has told her family member she would not want to be kept alive by mechanical means for more than 2 weeks. We will make the patient's oncologist, Dr. Echeverria aware that the patient is in the hospital. Patricia Ledezma MD Resident / Cynthia Bo MD / marie JOB #: [id number] CC: Franco Rosen, Attending Physician Franco Rosen, Family Physician
--- NOTE | 2016-11-19 08:34 | ER ---
ADMIT: 10/29/2016 RM/LOC: ER [facility] MR#: [id number] [address] [address] JOSE LUNA [address] [place] [address] Emergency Room Report SEX: F AGE: 56 : 1960 DATE: 10/29/2016 HISTORY OF PRESENT ILLNESS: A 56-year-old female with pancreatic cancer, receiving chemotherapy, comes to the Emergency Department with complaints of diarrhea and increased weakness over the past couple of days. She denies fever or chills. Denies pain anywhere, just increasing weakness and no appetite since she has had as many as seven stools a day, describes it as very watery. PHYSICAL EXAMINATION: GENERAL: Reveals a 56-year-old female, appears older than her stated age. Mild amount of distress. She is alert, cooperative. LUNGS: Clear to auscultation. CARDIOVASCULAR: Tachycardia. ABDOMEN: Soft with mild tenderness. EXTREMITIES: Unremarkable. EMERGENCY ROOM COURSE: Sepsis workup was initiated. CBC within normal limits. Chemistries are pending at time of this dictation, however, lactic acid is 2.2. UA is pending. The patient is being admitted with diarrhea, generalized weakness, and anorexia. Sal Hull MD/ marie JOB #: [id number] CC: Sal Hull MD, Attending Physician Cynthia Bo MD, Family Physician
--- NOTE | 2016-11-29 09:13 | DS ---
ADMIT: 10/29/2016 RM/LOC: 506 [facility] MR#: [id number] [address]20 [facility] [address] [place], [place] [address] JOSE LUNA [address] [place] [address] General Discharge Summary SEX: F AGE: 56 : 1960 ADMISSION DATE: 10/29/2016 DISCHARGE DATE: 11/03/2016 DIAGNOSES: 1. Septic shock secondary to Clostridium difficile colitis. 2. Stage IV pancreatic adenocarcinoma. 3. Acute kidney injury. 4. Metabolic acidosis. 5. Hypomagnesemia. 6. Hypokalemia. 7. Chronic obstructive pulmonary disease. 8. Bipolar disorder. 9. Nicotine use disorder. 10.Peptic ulcer disease. 11.Chronic cervicalgia. 12.Severe protein-calorie malnutrition. 13.Hypoxia. HOSPITAL COURSE: The patient was admitted on October 29 with a 3-day history of nausea, vomiting, and diarrhea. She has dealt with these symptoms off and on throughout her chemotherapy and also had a history of C. difficile colitis. She presented to the emergency room and was found to have a white blood cell count 9.3 with a 24% bandemia though had Neulasta 10 days prior. She also had a lactic acid of 2.3. Creatinine of 2.7 up from a baseline of 1.9 and procalcitonin of 2.66. She was admitted to the floor and given aggressive IV fluid hydration as her acute kidney injury appeared to be prerenal. She was started on empiric antibiotics targeting sepsis secondary to a gastrointestinal source with meropenem and Flagyl. Stool samples were collected. Her other home medications were continued. On hospital day 2, her stool sample was positive for C. difficile, so her Flagyl and meropenem were discontinued, and she was switched to oral vancomycin. Her proton pump inhibitor was also discontinued ADMIT: 10/29/2016 RM/LOC: 506 [facility] MR#: [id number] 2620 [facility] [address] [place], [place] [address] YOLIS LUNACasper Toure [address] [place] [address] General Discharge Summary SEX: F AGE: 56 : 1960 at that time. Unfortunately, throughout the hospital course, the patient continued to decline. She had increasing oxygen demands throughout hospital day 2, and on hospital day 3, required transfer to the ICU. She had developed hypotension as well as an altered mental status. Her procalcitonin was redrawn and found to be 52. Her treatment for C. difficile colitis was escalated with the addition of IV Flagyl; however, despite these aggressive measures on hospital day 5, her family appropriately decided to transition to comfort cares. Oral vancomycin was continued after the change in the patient's status as the family felt that it was palliative with a decrease in stool volume. The patient ultimately succumbed to her illness on November 03, 2016. Consultation with this hospitalization Nephrology and Supportive Care. Patricia Ledezma MD Resident / Franco Rosen MD / marie JOB #: [id number] CC: Franco Rosen MD, Attending Physician Franco Rosen MD, Family Physician
== END 2016-11-03 03:30 | disposition expired | DRG 871 ==
LOC: ER 10:16 → 3ICU 13:20 → 4PCU 13:20 → 3ICU 10-31 16:36 → 5MS 11-02 23:54
PROVIDERS: ADMIT Family Medicine
DX: A41.9 Sepsis, unspecified organism (principal); E43 Unspecified severe protein-calorie malnutrition; J96.01 Acute respiratory failure with hypoxia; N17.9 Acute kidney failure, unspecified; G92 Toxic encephalopathy; C78.7 Secondary malignant neoplasm of liver and intrahepatic bile duct; C25.9 Malignant neoplasm of pancreas, unspecified; E83.42 Hypomagnesemia; E86.0 Dehydration; A04.7 Enterocolitis due to Clostridium difficile; D64.81 Anemia due to antineoplastic chemotherapy; R65.20 Severe sepsis without septic shock; Z51.5 Encounter for palliative care; D63.0 Anemia in neoplastic disease; R41.0 Disorientation, unspecified; R09.02 Hypoxemia; E87.6 Hypokalemia; J44.9 Chronic obstructive pulmonary disease, unspecified; F31.9 Bipolar disorder, unspecified; F17.210 Nicotine dependence, cigarettes, uncomplicated; G43.909 Migraine, unspecified, not intractable, without status migrainosus; M54.2 Cervicalgia; G89.29 Other chronic pain; Z87.11 Personal history of peptic ulcer disease; Z66 Do not resuscitate